=== PATIENT | female | born 1960 | race Caucasian/White ===

== ENCOUNTER → 2022-07-19 | Outpatient (CLI) | payer BC ==
--- NOTE | 2022-07-31 14:42 | BMR ---
EXAMINATION TYPE: MR breast BILAT wo/w con DATE OF EXAM: 07/20/2022 2:59 PM COMPARISON: Mammography dated 05/29/2022, 06/05/2022 as well as 06/15/2002. Ultrasound dated 06/15/2022. HISTORY: Carcinoma of breast, family history of malignant breast cancer. CONTRAST: The patient was injected with 9 mL intravenous Gadavist gadolinium contrast. TECHNIQUE: Precontrast T1 and T2 coronal, axial and high-resolution STIR sagittal images were acquire d. Postcontrast dynamic images were acquired.This study was processed using a [facility] computer-aid ed detection system to optimize radiologist interpretation by generating multiplanar and three-dimens ional reconstructions, creating subtraction images from the dynamic contrast data and computing tumor volumes and dimensions. FINDINGS: Right breast: There is scattered fibroglandular tissue seen with mild adenosis present. There is no evidence for an enhancing mass or pathologic enhancement. No skin thickening or nipple retraction is seen. No axillary adenopathy present. Left breast: Spiculated previously sampled left breast mass is noted at the 3:00 position. This mass measures approximately 1.9 x 2.0 x 1.7 cm and demonstrates internal clip from prior biopsy. This mass resides approximately 6 cm from the nipple. At the 2:00 position there is an additional mass noted m easuring approximately 1.5 x 1.5 cm and resides approximately 6.2 cm from the nipple. The 2 masses re side close in proximity and are by approximately 8 mm. No additional suspicious masses are present within the left breast. Scattered cysts noted as well as some mild adenosis. Recently sampled left axillary lymph node is redemonstrated with signal void indicating clip placement. There is an a djacent enhancing 6 mm lymph node could also pathologic in nature. No additional adenopathy identifie d. IMPRESSION: 1. Right breast: Benign BI-RADS 2 2. Left breast: BI-RADS Category 6 known biopsy-proven malignancy at 2 sites (left 2:00 and left 3:00 location). Surgical consultation recommended. Subcentimeter enhancing lymph node adjacent to the pre viously sampled lymph node may reflect additional disease in this region. RECOMMENDATION: MR is approximately 98% specific in excluding invasive or infiltrative malignant neop lasm when hypovascularity or absence of enhancement is determined. Rare hypovascular neoplasms includ e mucinous carcinomas and tubular carcinomas. MR may not detect low-grade of DCIS and unusual instan mack of hypovascular lobular carcinomas have been reported. Mr breast findings should not be used to mitigate against biopsy in cases where there is substantive mammographic evidence of malignancy. Mri is not a suitable substitute for yearly screening mammogram unless the patient has extremely dense b reasts and the mammography study is limited or un-interpretable at which point the decision to substi tute MR is at the discretion of the patient and the patients clinician.
== END | disposition home or self-care (01) ==
LOC: RADMRIMAIN 18:39 → MERGE 07-29 13:45
PROVIDERS: ATTEND Internal Medicine Hematology & Oncology
DX: C50.412 Malignant neoplasm of upper-outer quadrant of left female breast (principal); C50.212 Malignant neoplasm of upper-inner quadrant of left female breast; C50.812 Malignant neoplasm of overlapping sites of left female breast; Z71.3 Dietary counseling and surveillance; Z80.3 Family history of malignant neoplasm of breast
CPT/HCPCS: 77049; A9585

== ENCOUNTER 2022-10-09 23:44 | Emergency (ER) | payer OTHER, BC ==
[2022-10-09 23:56] VITALS: RESP 18; TEMP 97.7
--- NOTE | 2022-10-10 01:05 | XR ---
EXAMINATION TYPE: XR ankle complete LT, XR foot complete LT DATE OF EXAM: 10/10/2022 CLINICAL HISTORY: pain fall injury TECHNIQUE: Frontal, lateral and oblique images of the left ankle and foot are obtained. COMPARISON: None. FINDINGS: There is no acute fracture/dislocation evident in the left ankle. The ankle mortise appea rs within normal limits. Small to moderate size inferior calcaneal spur is noted. The overlying soft tissue appears unremarkable. There is no acute fracture or dislocation evident in the left foot. Mild to moderate narrowing first metatarsophalangeal joint. Overlying soft tissue is unremarkable. IMPRESSION: There is no acute fracture or dislocation in the left ankle or foot.
--- NOTE | 2022-10-10 01:28 | ED ---
General Adult HPI - General Chief complaint: Extremity Injury, Lower Stated complaint: [facility] - Left Foot Injury Time Seen by Provider: 10/10/22 00:09 Source: patient, RN notes reviewed, old records reviewed Mode of arrival: wheelchair Limitations: no limitations - History of Present Illness Initial comments: Patient is a 62-year-old female who presents emergency department after injuring her left foot at work. Patient states that struck an object, suspect a floor fan. Endorses left lateral ankle pain as well as foot pain on the top of her foot. Injury occurred some hours ago when she worked on it for 4 hours prior to presentation. Denies any head injury. Denies being on blood thinners. Denies loss of consciousness. Denies any other injuries. Presents for x-rays.Patient took Tylenol prior to arrival. - Related Data Home Medications Medication Instructions Recorded Confirmed Acetaminophen [Tylenol Arthritis] 650 mg PO DAILY 06/06/22 06/06/22 Allergies Allergy/AdvReac Type Severity Reaction Status Date / Time No Known Allergies Allergy Verified 07/13/22 13:59 Review of Systems ROS Statement: Those systems with pertinent positive or pertinent negative responses have been documented in the HPI. Review of Systems: CONST: Denies fever EYES: Denies blurry vision ENT: Denies nasal congestion C/V: Denies Chest pain RESP: Denies shortness of breath GI: Denies abdominal pain : Denies dysuria SKIN: Denies rash. MSK: Endorses left foot pain NEURO: Denies headache ROS Other: All systems not noted in ROS Statement are negative. Past Medical History Past Medical History: No Reported History History of Any Multi-Drug Resistant Organisms: None Reported Past Surgical History: Section Additional Past Surgical History / Comment(s): Hernia repair 1994? Past Anesthesia/Blood Transfusion Reactions: No Reported Reaction Past Psychological History: No Psychological Hx Reported Smoking Status: Former smoker Past Alcohol Use History: Rare Past Drug Use History: Methamphetamine General Exam - General Exam Comments Initial Comments: General: Appears in no acute distress. HEAD: Normal with no signs of head trauma. EYES: EOMI. ENT: Hearing grossly intact. RESPIRATORY: No respiratory distress. C/V: Regular rate and rhythm. ABD: Abdomen is nondistended. EXT: Left lateral malleolar tenderness to palpation. Tenderness to palpation of the dorsal aspect of the left foot as well. No obvious deformities. No skin changes. Normal range of motion. SKIN: No rashes or lesions observed on exposed skin. NEURO: Alert and oriented. Limitations: no limitations Course Vital Signs 10/09/22 23:52 Temperature 97.7 F Pulse Rate 91 Respiratory 18 Rate Blood Pressure 126/73 O2 Sat by Pulse 98 Oximetry Medical Decision Making - Medical Decision Making Was pt. sent in by a medical professional or institution (, [facility], ABRASIVES SALES REPRESENTATIVE, urgent care, hospital, or snf...) When possible be specific @ -No Did you speak to anyone other than the patient for history (EMS, parent, family, police, friend...)? What history was obtained from this source @ -No Did you review nursing and triage notes (agree or disagree)? Why? @ -I reviewed and agree with nursing and triage notes Were old charts reviewed (outside hosp., previous admission, EMS record, old EKG, old radiological studies, urgent care reports/EKG's, snf records)? Report findings @ -No old charts were reviewed Differential Diagnosis (chest pain, altered mental status, abdominal pain women, abdominal pain men, vaginal bleeding, weakness, fever, dyspnea, syncope, headache, dizziness, GI bleed, back pain, seizure, CVA, palpatations, mental health, musculoskeletal)? @ -Differential Musculoskeletal Muscular strain, contusion, ligament sprain, fracture, arthritis, septic arthritis, bursitis, cellulitis, muscle spasm, nerve compression, DVT, arterial occlusion, herpes zoster, electrolyte abnormality, tumor.... This is not meant to be in all inclusive list EKG interpreted by me (3pts min.). @ -None done X-rays interpreted by me (1pt min.). @ -Left ankle and foot x-ray reveals no obvious acute injury or process. CT interpreted by me (1pt min.). @ -None done U/S interpreted by me (1pt. min.). @ -None done What testing was considered but not performed or refused? (CT, X-rays, U/S, labs)? Why? @ -None What meds were considered but not given or refused? Why? @ -None Did you discuss the management of the patient with other professionals (professionals i.e. , [facility], A[employer]ES SALES REPRESENTATIVE, lab, RT, psych nurse, clinical social work therapist, tester/lift trucker, teacher, small business banking officer, case worker)? Give summary @ -No Was smoking cessation discussed for >3mins.? @ -No Was critical care preformed (if so, how long)? @ -No Were there social determinants of health that impacted care today? How? (Homelessness, low income, unemployed, alcoholism, drug addiction, transportation, low edu. Level, literacy, decrease access to med. care, fpc, rehab)? @ -No Was there de-escalation of care discussed even if they declined (Discuss DNR or withdrawal of care, Hospice)? DNR status @ -No What co-morbidities impacted this encounter? (DM, HTN, Smoking, COPD, CAD, Ca ncer, CVA, ARF, Chemo, Hep., AIDS, mental health diagnosis, sleep apnea, morbid obesity)? @ -None Was patient admitted / discharged? Hospital course, mention meds given and route, prescriptions, significant lab abnormalities, going to OR and other pertinent info. @ -Based on the patient's presentation and physical exam, I'm concerned for po ssible ankle or foot injury. We will obtain x-rays. Patient already took Tylenol at home and therefore declines any additional analgesic medications. Exam is relatively unremarkable other than tenderness to palpation. Vital signs within acceptable limits. No other injuries. Imaging negative for any obvious acute traumatic injury. We discussed the workup. She'll be discharged home with a work note for one day off work to rest her ankle and foot. She was in agreement this plan. She can use [id number] analgesic medications for pain control. Strict return precautions discussed. Left foot will be wrapped in an Sean bandage. Discussed icing, elevation, rest. I instructed the patient to follow up with their PCP in the next 1-3 days. I explained that the patient should return to the emergency department if they experience any worsening symptoms. Strict return precautions were discussed with the patient. The patient expressed understanding of these instructions. I answered all questions that the patient had. The patient was discharged home in good condition with their prescriptions and follow up information. Undiagnosed new problem with uncertain prognosis? @ -No Drug Therapy requiring intensive monitoring for toxicity (Heparin, Nitro, Insulin, Cardizem)? @ -No Were any procedures done? @ -No Diagnosis/symptom? @ -Left foot sprain Acute, or Chronic, or Acute on Chronic? @ -Acute Uncomplicated (without systemic symptoms) or Complicated (systemic symptoms)? @ -Uncomplicated Side effects of treatment? @ -No Exacerbation, Progression, or Severe Exacerbation? @ -No Poses a threat to life or bodily function? How? (Chest pain, [place], [place], pneumonia, PE, COPD, DKA, ARF, appy, cholecystitis, CVA, Diverticulitis, Homicidal, Suicidal, threat to staff... and all critical care pts) @ -No Disposition Clinical Impression: Sprain of left foot Disposition: HOME SELF-CARE Condition: Good Instructions (If sedation given, give patient instructions): Foot Sprain (ED) Is patient prescribed a controlled substance at d/c from ED?: No Referrals: Daniel Howell MD [Primary Care Provider] - 1-2 days Time of Disposition: 01:21
[2022-10-10 01:47] VITALS: BP 129/75; PULSE 82
== END 2022-10-10 01:47 | disposition home or self-care (01) ==
LOC: EC 23:44
DX: S93.602A Unspecified sprain of left foot, initial encounter (principal); F15.90 Other stimulant use, unspecified, uncomplicated; Z87.891 Personal history of nicotine dependence; W22.8XXA Striking against or struck by other objects, initial encounter; Y99.0 Civilian activity done for income or pay
CPT/HCPCS: 99283

== ENCOUNTER → 2022-10-11 | Outpatient (CLI) | payer OTHER ==
--- NOTE | 2022-10-11 16:03 | XR ---
EXAMINATION TYPE: XR knee complete RT, XR tibia fibula RT DATE OF EXAM: 10/11/2022 3:58 PM INDICATION: Patient age:Female; 62 years old; Reason for study: S80.01XA,S80.11XA; [facility]. COMPARISON: None. TECHNIQUE: The Right knee(s) was examined in frontal, lateral, and oblique projections. The right tib ia/fibula was examined in AP and lateral projections. FINDINGS: No evidence of any acute osseous pathology, joint space narrowing, soft tissue swelling, or joint effusion is noted. No sclerotic or lytic lesions identified. No radiopaque foreign body. Mod erate size plantar calcaneal enthesophyte. IMPRESSION: No acute osseous pathology.
== END | disposition home or self-care (01) ==
LOC: RADXRMAIN 15:39
PROVIDERS: ATTEND Emergency Medicine
DX: S80.01XA Contusion of right knee, initial encounter (principal); S80.11XA Contusion of right lower leg, initial encounter; X58.XXXA Exposure to other specified factors, initial encounter

== ENCOUNTER → 2023-08-29 | Outpatient (CLI) | payer BC ==
--- NOTE | 2023-08-29 09:43 | MM ---
Reason for Exam: Hx of breast cancer, conservation therapy. Last mammogram was performed 1 year(s) and 3 month(s) ago. Patient History: Menarche at age 14. First Full-Term at age 22. Postmenopausal. Patient has history of breast feeding. Breast cancer, left, age 61. 06/15/2022, US breast needle core LT on the Left side. 06/15/2022, US biopsy breast add'l VAD LT on the Left side. 06/15/2022, Malignant US biopsy breast VAD LT on the left side. 2022, Radiation Therapy on the left side. Mother had breast cancer, age 55. Tissue Density: The breasts are heterogeneously dense, which may obscure small masses. Findings: Analyzed By CAD. There is asymmetric with greater parenchymal tissue on the left compared to the right. Diffuse skin thickening is present through the left breast. Scar marker is visualized. Multiple surgical clips from the patient's lumpectomy are evident. No suspicious groups of microcalcifications, spiculated or lobular masses, architectural distortion or other secondary signs of malignancy are mammographically apparent. Overall Assessment: Benign, BI-RAD 2 Management: Diagnostic Mammogram of both breasts in 1 year. A negative mammogram report should not preclude additional follow up of suspicious palpable abnormalities. Patient should continue monthly self breast exam. A clinical breast exam by your physician is recommended on an annual basis and results should be correlated with mammographic findings. Note on Magnolia scores and lifetime risk: 1. A Magnolia score greater than 3% is considered moderate risk. If this is the case, consider specialist referral to assess eligibility for a risk reducing agent. 2. If overall lifetime risk for the development of breast cancer is 20% or higher, the patient may qualify for future screening with alternating mammogram and breast MRI. Electronically signed and approved by: Hamilton Saleh D.O. Radiologis
== END | disposition home or self-care (01) ==
LOC: RADMAMWWP 09:14
PROVIDERS: ATTEND Internal Medicine Hematology & Oncology
DX: C50.412 Malignant neoplasm of upper-outer quadrant of left female breast (principal); M81.0 Age-related osteoporosis without current pathological fracture; R92.333 Mammographic heterogeneous density, bilateral breasts; Z17.0 Estrogen receptor positive status [ER+]; Z80.3 Family history of malignant neoplasm of breast; Z78.0 Asymptomatic menopausal state
CPT/HCPCS: 77062; 77066

== ENCOUNTER → 2024-04-28 | Outpatient (CLI) | payer BC ==
--- NOTE | 2024-04-28 15:25 | CT ---
EXAMINATION TYPE: CT chest wo con CT DLP: 518 mGycm, Automated exposure control for dose reduction was used. DATE OF EXAM: 04/28/2024 3:05 PM COMPARISON: None CLINICAL INDICATION:Female, 63 years old with history of J18.9 PNEUMONIA, UNSPECIFIED ORGANISM; PHH, Pneumonia, unpsecified organism. Hx of Breast CA. TECHNIQUE: Multiple axial images were obtained through the chest without IV contrast. Lack of IV or o ral contrast limits evaluation of solid and hollow organ viscera. . Coronal and sagittal reformats re viewed. FINDINGS: LUNGS/ PLEURA: Mild centrilobular and paraseptal emphysematous changes in the upper lobes. Left anter ior upper lobe subpleural reticular opacities likely representing post radiation changes. No pleural effusion or pneumothorax. Medial right lower lobe 5.2 mm solid pulmonary nodule (series 4, image 34). AIRWAY: Patent and unremarkable.. HEART: Size within normal limits.No pericardial effusion. No significant coronary artery calcificatio ns. MEDIASTINUM: No gross evidence of adenopathy. VASCULATURE: No aortic aneurysm. MUSCULOSKELETAL: No acute osseous abnormalities. Multilevel degenerative disc disease. No aggressive osseous lesion. SOFT TISSUES/LYMPH NODES: No axillary adenopathy. Postsurgical changes of the left breast with surgic al clips. LOWER NECK: No significant findings. UPPER ABDOMEN: Diffuse low-attenuation to the liver parenchyma. IMPRESSION: 1. No acute thoracic process. 2. Right lower lobe 5.2 mm solid pulmonary nodule. No prior imaging available for comparison. Conside r follow-up CT chest in 3-6 months to assess for stability. 3. Mild emphysematous changes with anterior left upper lobe post radiation changes. 4. Hepatic steatosis. [facility], , 04/28/2024 3:23 PM
== END | disposition home or self-care (01) ==
LOC: RADCTMAIN 14:48
PROVIDERS: ATTEND Family Medicine
DX: J43.9 Emphysema, unspecified (principal); J18.9 Pneumonia, unspecified organism; R91.1 Solitary pulmonary nodule; Z92.3 Personal history of irradiation; K76.0 Fatty (change of) liver, not elsewhere classified
CPT/HCPCS: 71250